=== PATIENT | female | born 1950 | race Caucasian/White ===

== ENCOUNTER → 2017-11-30 | Outpatient (CLI) | payer MEDICARE, OTHER ==
--- NOTE | 2017-11-30 16:17 | BD ---
EXAMINATION TYPE: Axial Bone Density DATE OF EXAM: 11/30/2017 CLINICAL HISTORY: Height: 62.5 Weight: 150 pounds FRAX RISK QUESTIONS: Alcohol (3 or more units per day): no Family History (Parent hip fracture): mother broke femur below hip Glucocorticoids (More than 3mos): no (Ex: prednisone, prednisolone, methylprednisolone, dexamethasone, and hydrocortisone). History of Fracture in Adulthood: no Secondary Osteoporosis: 1. Type 1 Diabetes: no 2. Hyperthyroidism: no 3. Menopause before 45: no 4. Malnutrition: no 5. Chronic liver disease: no Rheumatoid Arthritis: no Current Tobacco Use: no RISK FACTORS HISTORY OF: Family History of Osteoporosis: yes Active: yes Diet low in dairy products/other sources of calcium: no Postmenopausal woman: yes Take estrogen and/or progesterone medications: no Lost more than 2 inches in height since high school: no Frequent falls: no Poor Health: no Hyperparathyroidism: no Adrenal Insufficiency: no MEDICATIONS: Prednisone or other steroids: no Thyroid Medications: no Osteoporosis Medications: not now Which medication: Boniva How Long: not long...allergic reaction Additional Medications: calcium & Vitamin D Additional History: bladder CA EXAM MEASUREMENTS: Bone mineral densitometry was performed using the [employer] System. Bone mineral density as measured about the Lumbar spine is: ----- L1-L4(G/cm2): 1.056 T Score Values are as follows: ----- L2: -2.2 ----- L3: -1.1 ----- L4: 0.1 ----- L1-L4: -1.0 Bone mineral density has: Decreased -4.1% since study of: 06/05/2008 Bone mineral density about the R hip (g/cm2): 0.751 Bone mineral density about the L hip (g/cm2): 0.748 T Score values are as follows: -----R Neck: -2.1 -----L Neck: -2.1 -----R Total: -1.4 -----L Total: -1.8 Bone mineral density has: Increased 0.1% since study of: 06/05/2008 IMPRESSION: Osteopenia (T Score between -2.5 and -1). There is slightly increased risk of fracture and the patient may be considered for treatment. Re-Screen 2-5 years. NOTE: T-SCORE=SD OF THE YOUNG ADULT MEAN.
== END | disposition home or self-care (01) ==
LOC: RADBDWWP 07:11
PROVIDERS: ATTEND Family Medicine
DX: Z13.820 Encounter for screening for osteoporosis (principal); M85.80 Other specified disorders of bone density and structure, unspecified site
CPT/HCPCS: 77080

== ENCOUNTER → 2023-06-06 | Outpatient (CLI) | payer MEDICARE ==
--- NOTE | 2023-06-06 12:38 | CA ---
Exercise Stress Test Report Name: Shruthi Salazar Exam Date: 06/06/2023 11:05 Exam Location: [facility] Ht (in): 62 Wt (lb): 150 BSA: 1.69 Ordering Phys: Hiram Gonzalez DO Referring Phys: Essie Reeves [facility] Technologist: RASHAWN KRISHNAMURTHY Age: 73 Gender: F : 1950 Procedure CPT: Indications: R06.02 SOB ICD-10 Codes: Patient History: Medications: Meds past 24 hrs: Pretest Chest Pain: STRESS TEST Connor Protocol Exercise Duration (min:sec): 06:[address] Depressions (mm): Angina Score: Marshall Score: Resting HR (bpm): 72 Peak HR (bpm): 139 Resting BP (mmHg): 179 / 93 Peak BP (mmHg): 204 / 85 MPHR: 147 Target HR: 125 % MPHR: 95 METS: 7.3 Total Dose: Peak Dose: Atropine: Double Product: 59604 BP Response: Stress Termination: Reached target heart rate Stress Symptoms: No chest pain or symptoms Stress Summary: ECG ANALYSIS Resting ECG: Stress ECG: CONCLUSIONS Good exercise tolerance Abnormal electrocardiogram in response to exercise Overall abnormal exercise treadmill stress test Dr. Tj German MD (Electronically Signed) Final Date: 06 June 2023 12:38
== END | disposition home or self-care (01) ==
LOC: RADNMMAIN 10:13
PROVIDERS: ATTEND Family Medicine
DX: R94.31 Abnormal electrocardiogram [ECG] [EKG] (principal); E78.5 Hyperlipidemia, unspecified
CPT/HCPCS: 93017

== ENCOUNTER → 2023-06-13 | Outpatient (CLI) | payer MEDICARE ==
--- NOTE | 2023-06-14 09:43 | MM ---
Reason for Exam: Screening (asymptomatic). Last mammogram was performed 15 year(s) and 0 month(s) ago. Patient History: Menarche at age 12. First Full-Term at age 20. Postmenopausal. Risk Values: Melodie 5 year model risk: 1.6%. NCI Lifetime model risk: 3.9%. Prior Study Comparison: 03/01/2006 Bilateral Screening Mammogram, [facility]. 03/06/2007 Bilateral Screening Mammogram, [facility]. 06/05/2008 Bilateral Screening Mammogram, [facility]. Tissue Density: The breasts are heterogeneously dense, which may obscure small masses. Findings: Analyzed By CAD. There is no suspicious group of microcalcifications or new suspicious mass in either breast. Overall Assessment: Benign, BI-RAD 2 Management: Screening Mammogram of both breasts in 1 year. . Patient should continue monthly self-breast exams. A clinical breast exam by your physician is recommended on an annual basis. This exam should not preclude additional follow-up of suspicious palpable abnormalities. Note on Melodie scores and lifetime risk: 1. A Melodie score greater than 3% is considered moderate risk. If this is the case, consider specialist referral to assess eligibility for a risk reducing agent. 2. If overall lifetime risk for the development of breast cancer is 20% or higher, the patient may qualify for future screening with alternating mammogram and breast MRI. Electronically signed and approved by: Alon Wild M.D. Radiologis
== END | disposition home or self-care (01) ==
LOC: RADMAMWWP 07:08
PROVIDERS: ATTEND Family Medicine
DX: Z12.31 Encounter for screening mammogram for malignant neoplasm of breast (principal); Z78.0 Asymptomatic menopausal state
CPT/HCPCS: 77063; 77067